=== PATIENT | male | born 1950 | race Caucasian/White ===

== ENCOUNTER 2017-09-01 20:44 | Emergency (ER) | payer BC, SELFPAY ==
[2017-09-01 20:53] VITALS: BP 156/78; PULSE 70; RESP 18; TEMP 36.6; O2SAT 100; BMI 35.4
--- NOTE | 2017-09-01 21:01 | DI.US.S_ITS ---
PROCEDURE: US PERIPH VENOUS LOW EXTREM LT INDICATIONS: swelling left leg TECHNIQUE: Real-time imaging, as well as color and pulse Doppler interrogation, were performed of the lower extremity deep veins from the inguinal ligament to the popliteal fossa. COMPARISON: None. FINDINGS: The deep veins are normally compressible, and free of intraluminal thrombus. Color and pulse Doppler demonstrate normal phasic intraluminal flow. There is normal augmentation response to distal compression maneuver. There is a 3.6 x 1.2 x 3.3 cm irregular hypoechoic mass no internal vascular Doppler exam in the left popliteal fossa. IMPRESSION: No sonographic evidence of left lower extremity venous thrombus. 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 Dictated by: Edson Haider M.D. on 09/01/2017 at 22:32 Approved by: Edson Haider M.D. on 09/01/2017 at 22:33
--- NOTE | 2017-09-01 21:34 | ED.EXTPRO ---
HPI - Extremity Problem General Chief complaint: Extremity Problem,Nontraumatic Stated complaint: RT LEG SWELLING Time Seen by Provider: 09/01/17 21:34 Source: patient Mode of arrival: ambulatory Limitations: no limitations History of Present Illness HPI Narrative: 58-year-old male here for evaluation LLE swelling. he states that he brought a boat up to the local area for [place]. he states that he did 'spend some time on my knees during this event. He states that he was seen at an outside hospital for this on sun and had a neg DVT US at that time. he went to the clinic on one of the local [facility] and was sent here for further evaluation. no trauma. Related Data Previous Rx's Medication Instructions Recorded furosemide [Lasix] 40 mg PO DAILY #10 tab 09/01/17 Allergies Allergy/AdvReac Type Severity Reaction Status Date / Time No Known Drug Allergies Allergy Verified 09/01/17 20:56 Review of Systems Constitutional Denies chills, Denies fever(s), Denies lethargy and Denies weakness Musculoskeletal Comments: swelling to the left lower extremity. Integumentary/Breasts Denies pruritus, Denies erythema, Denies rash and Denies wounds Neurologic Denies weakness PFS Social History Smoking Status: Never smoker Exam Const General: cooperative and well developed Nutritional Appearance: well nourished Orientation: alert, awake, oriented x3 and not confused Skin General: no rashes or lesions noted, No jaundice and No petechiae Neuro Other: sensation intact to light touch to the left LE Extrem Other: pt with swelling and non-pitting edema to the left LE from the foot to the knee. left knee and ankle unremarkable. MDM - Extremity (Nontraumatic) MDM Narrative Medical decision making narrative: No signs of DVT on today's US, no signs of cellulitis, No trauma, doubt fracture. discussed with pt. will place on lasix for the next couple days to see if this does not help with the swelling. he was instructed to follow up with his PCM to discuss further evaluation and treatment. He was given return precautions and expressed understanding. Imaging Data DVT ultrasound: Radiologist's impression: PROCEDURE: US PERIPH VENOUS LOW EXTREM LT INDICATIONS: swelling left leg TECHNIQUE: Real-time imaging, as well as color and pulse Doppler interrogation, were performed of the lower extremity deep veins from the inguinal ligament to the popliteal fossa. COMPARISON: None. FINDINGS: The deep veins are normally compressible, and free of intraluminal thrombus. Color and pulse Doppler demonstrate normal phasic intraluminal flow. There is normal augmentation response to distal compression maneuver. There is a 3.6 x 1.2 x 3.3 cm irregular hypoechoic mass no internal vascular Doppler exam in the left popliteal fossa. IMPRESSION: No sonographic evidence of left lower extremity venous thrombus. 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 Dictated by: Edson Haider M.D. on 09/01/2017 at 22:32 Course Orders Ordered: ED Orders 09/01/17 21:01 US periph venous low extrem lt Stat Last Vital Signs Temp 97.8 F 09/01/17 20:53 Pulse 64 09/01/17 22:47 Resp 15 09/01/17 22:47 BP 150/78 H 09/01/17 22:47 Pulse Ox 99 09/01/17 22:47 Discharge Plan Departure Patient Disposition: Home, Self-Care Clinical Impression: Edema Discharge Date/Time: 09/01/17 22:48 Interventions: ED Discharge Assessment Last Done: 09/01/17 22:48 Instructions: DI for Dependent Edema Activity Restrictions/Additional Instructions: You have no restrictions on activity. Contact your primary care doctor for a follow-up to discuss further evaluation and treatment. Take all your medications as directed. Return to the emergency department for any new or worsening symptoms Prescriptions: New furosemide [Lasix] 40 mg tablet 40 mg PO DAILY Qty: 10 RF: 0
[2017-09-01 22:47] VITALS: BP 150/78; PULSE 64; RESP 15; O2SAT 99
== END 2017-09-01 22:48 | disposition home or self-care (01) ==
PROVIDERS: Emergency Provider Emergency Medicine
DX: R60.0 Localized edema (principal)
CPT/HCPCS: 93971; 99282; 99284